=== PATIENT | male | born 1980 | race Caucasian/White ===

== ENCOUNTER 2020-09-20 15:11 | Outpatient (CLI) | payer OTHER, SELFPAY ==
--- NOTE | 2020-09-20 14:30 | DI.RAD_ITS ---
Exam(s) XR ELBOW LT COMPLETE EXAM: XR ELBOW LT COMPLETE CLINICAL HISTORY: f/u TECHNIQUE: COMPARISON: No exams were available for comparison FINDINGS: Three views were obtained. No prior films available for comparison. There is no evidence of an elbo w joint effusion or hemarthrosis. There may be mild soft tissue swelling over the olecranon. No oth er bony or soft tissue abnormality is seen. IMPRESSION: RADIATION DOSE DELIVERED: Total DLP
== END 2020-09-20 15:12 | disposition home or self-care (01) ==
LOC: DIORS 15:12
PROVIDERS: PCP Physician Assistant Medical; Referring Provider Physician Assistant Medical; Visit Provider Student in an Organized Health Care Education/Training Program
DX: M25.522 Pain in left elbow (principal); M79.89 Other specified soft tissue disorders
CPT/HCPCS: 73080

== ENCOUNTER 2024-08-06 02:37 | Outpatient (CLI) | payer OTHER, SELFPAY ==
[2024-08-06 08:54] LABS: Iron 56 ug/dL (65-175); Total Iron Binding Capacity 288 ug/dL (250-450); Transferrin Sat 19 % (20-55)
[2024-08-06 09:04] LABS: ALT 87 U/L (16-63); AST 61 U/L (15-37); Alkaline Phosphatase 82 U/L (46-116); Anion Gap 6.5 mmol/L (3-11); BUN 26 mg/dL (7-18); Bilirubin, Total 0.4 mg/dL (0.2-1.0); CO2 25.5 mmol/L (21.0-32.0); CREATININE 0.9 mg/dL (0.70-1.30); Calcium 9.3 mg/dL (8.5-10.1); Chloride 108 mmol/L (98-107); Estimated GFR 110.04 (mL/min/1.73m2); Ferritin 489 ng/mL (26-388); Folate 9.7 ng/mL (8.6-20.0); Glucose 108 mg/dL (74-106); Magnesium 2.1 mg/dL; Potassium 4.1 mmol/L (3.5-5.1); Sodium 140 mmol/L (136-145); Total Protein 7.5 g/dL (6.4-8.2); Vitamin B12 376 pg/mL (193-986); Vitamin D 25 Total 17 ng/mL (30-100)
[2024-08-07 10:01] LABS: IgE 265 IU/mL (<158)
[2024-08-07 10:12] LABS: Homocysteine 12.8 umol/L (5.0-13.9)
[2024-08-07 10:29] LABS: IgA 106 mg/dL (85-499); IgG 1046 mg/dL (610-1616); IgM 135 mg/dL (35-242)
[2024-08-08 13:39] LABS: Lipoprotein (a) 15 nmol/L (<75)
[2024-08-09 11:18] LABS: Apolipoprotein A1, S 134 mg/dL (>=120); Apolipoprotein B, S 141 mg/dL (See Comment); Apolipoprotein B/A 1 ratio 1.1 (See Comment)
[2024-08-10 17:11] LABS: Egg Whole IgE 0.99 kU/L (<0.70)
[2024-08-11 12:08] LABS: Egg Whole IgG 10.4 mcg/mL (<2.0); Wheat IgG 5.8 mcg/mL
== END 2024-08-06 02:38 | disposition home or self-care (01) ==
LOC: LBO 02:37
PROVIDERS: PCP Physician Assistant Medical; Visit Provider Naturopath
DX: G25.81 Restless legs syndrome (principal); L50.8 Other urticaria; E78.5 Hyperlipidemia, unspecified; E55.9 Vitamin D deficiency, unspecified
CPT/HCPCS: 36415; 80053; 82172; 82306; 82784; 83090; 83695; 86001; 86003; 82607; 82728; 82746; 82785; 83088; 83540; 83550; 83735